=== PATIENT | female | born 1940 ===

== ENCOUNTER → 2018-03-05 | Emergency (ER) | payer OTHER ==
[~2018-03-05] VITALS: Ht 167.6 cm; Wt 79.4 kg
[~2018-03-05] MED LIST: ZITHROMAX500 MG PO
== END | disposition home or self-care (01) ==
LOC: ER 19:11
DX: R42 Dizziness and giddiness (principal); R55 Syncope and collapse

== ENCOUNTER → 2021-05-24 | Outpatient (CLI) | payer OTHER | END | disposition home or self-care (01) | LOC: NUCLEAR 05-23 07:00 | PROVIDERS: ATTEND Internal Medicine Cardiovascular Disease | DX: I20.8 Other forms of angina pectoris (principal) | CPT/HCPCS: 78452; 93017; A9500; J0153 ==

== ENCOUNTER 2022-02-20 15:16 | Emergency (ER) | payer OTHER ==
[~2022-02-20] VITALS: Ht 167.6 cm; Wt 76.7 kg
[2022-02-21] MEDS ORDERED: SIMVASTATIN5 MG PO (10:44)
[2022-02-21] MEDS ORDERED: WELLBUTRIN SR100 MG PO (10:46)
== END 2022-02-20 17:55 | disposition home or self-care (01) ==
LOC: ER 15:16
DX: K04.7 Periapical abscess without sinus (principal)

== ENCOUNTER 2022-02-21 10:22 | Emergency (ER) | payer OTHER ==
[~2022-02-21] VITALS: Ht 165.1 cm; Wt 74.8 kg
[2022-02-21] MEDS ORDERED: SIMVASTATIN5 MG PO (10:44)
[2022-02-21] MEDS ORDERED: WELLBUTRIN SR100 MG PO (10:46)
== END 2022-02-21 16:33 | disposition home or self-care (01) ==
LOC: ER 10:22
DX: K04.7 Periapical abscess without sinus (principal)